=== PATIENT | male | born 1970 | race African-American/Black ===

== ENCOUNTER 2016-10-27 19:05 | Emergency (ER) | payer OTHER ==
[~2016-10-27] VITALS: Ht 177.8 cm; Wt 81.7 kg
[2016-10-27] MEDS ORDERED: IBUPROFEN 200200 M1 PO (19:14)
[2016-10-27 19:30] LABS: HEMATOCRIT 37.7 % (42.0-52.0); HEMOGLOBIN 12.4 gm/dL (14.0-18.0); MCH 26.4 pg (26.0-34.0); MCHC 32.9 g/dL (28.0-37.0); MCV 80.1 fL (80.0-100.0); PLATELET COUNT 134 thou/uL (150-400); RBC 4.71 mil/uL (4.50-6.00); RDW 12.7 % (10.5-14.5); WBC 7.4 thou/uL (4.0-11.0)
[2016-10-27 19:31] LABS: MANUAL DIFF YES
[2016-10-27 19:38] LABS: URINE BLOOD 3+ (Negative); URINE COLOR YELLOW; URINE GLUCOSE-RANDOM* NEGATIVE (Negative); URINE KETONES 1+ (Negative); URINE NITRITE NEGATIVE (Negative); URINE PROTEIN (DIPSTICK) 2+ (Negative); URINE SPECIFIC GRAVITY >= 1.030 (1.003-1.035)
[2016-10-27 19:40] LABS: CREATININE 2.9 mg/dL (0.7-1.3); POTASSIUM 3.4 mmol/L (3.5-5.1)
[2016-10-27 19:40] LABS: URINE BILIRUBIN NEGATIVE (Negative)
[2016-10-27 19:51] LABS: SQUAMOUS None Seen /LPF (0-3); URINE RBC 0-2 Rare /HPF (0-2); URINE WBC 6-15 Few /HPF (0-5)
[2016-10-27 19:53] LABS: ALBUMIN 4.9 g/dL (3.4-5.0); DIRECT BILIRUBIN 0.2 mg/dL (<0.1-0.3); TOTAL BILIRUBIN 0.8 mg/dL (<0.1-1.0); TOTAL PROTEIN 8.6 g/dL (6.4-8.2)
[2016-10-27 19:53] LABS: CRYSTALS None Seen /LPF (None Seen); FINE GRANULAR CASTS 0-3 Few /LPF (None Seen); HYALINE CASTS 0-3 Few /LPF (None Seen)
[2016-10-27 19:56] LABS: ABSOLUTE NEUTROPHILS 6.1 thou/uL (1.4-8.2); TOTAL CELL COUNT 100
[2016-10-27 21:02] VITALS: BP 145/106
== END 2016-10-27 21:06 | disposition home or self-care (01) ==
LOC: ER 19:05
PROVIDERS: Emergency Medicine
DX: M62.82 Rhabdomyolysis (principal); N28.9 Disorder of kidney and ureter, unspecified; T67.5XXA Heat exhaustion, unspecified, initial encounter; X58.XXXA Exposure to other specified factors, initial encounter; Y93.89 Activity, other specified; Y92.89 Other specified places as the place of occurrence of the external cause; Y99.8 Other external cause status